=== PATIENT | male | born 1955 | race Caucasian/White ===

== ENCOUNTER → 2016-08-13 | Outpatient (CLI) | payer OTHER ==
[~2016-08-13] MED LIST: 00186-0372-20 IH; LEVAQUIN 750MG750 M1 PO; MULTI VITAMINS1 TAB PO; PREDNISONE20 MG PO; PRINIVIL40 MG PO; PROVENTIL0.09 MG/A1 IH; TOPROL XL 50MG50 MG PO
== END ==
LOC: COL.PUL 08:00
DX: Z02.71 Encounter for disability determination (principal)
CPT/HCPCS: J0690; J1100; J2405

== ENCOUNTER 2016-12-26 00:41 | Emergency (ER) | payer OTHER | END 2016-12-26 04:13 | disposition E | LOC: COL.ER 00:41 → EDBD 00:41 → COL.ER 04:13 | DX: S00.03XA Contusion of scalp, initial encounter (principal); S00.83XA Contusion of other part of head, initial encounter; I46.9 Cardiac arrest, cause unspecified; X58.XXXA Exposure to other specified factors, initial encounter | CPT/HCPCS: J0171 ==